=== PATIENT | male | born 1970 | race Caucasian/White ===

== ENCOUNTER → 2020-08-14 16:50 | Outpatient (CLI) | payer OTHER, SELFPAY ==
[2020-07-22 08:51] VITALS: BMI 30.3
--- NOTE | 2020-08-14 16:54 | MRI_ITS ---
STUDY: MRI LUMBAR SPINE WITHOUT CONTRAST REASON FOR EXAM: Male, 50 years old. pain, herniation of lumbar disc, lbp radiating to RLE TECHNIQUE: Standardized fat and water weighted pulse sequences were obtained in the sagittal and axial planes. COMPARISON: X-ray 07/22/2020. FINDINGS: T12-L1: Normal endplates. Normal disc height, hydration and morphology. Normal bilateral facet joints. Normal central canal and bilateral lateral recesses. Normal bilateral intervertebral neural foramina. Normal lumbar lordosis. There is no substantial scoliosis. Normal conus medullaris that terminates at the T12-L1 level. L1-2: Normal endplates. Disc dehydration. Mild, noncompressive spondylotic bar. Normal bilateral facet joints. Normal central canal and bilateral lateral recesses. Normal bilateral intervertebral neural foramina. L2-3: Normal endplates. Normal disc height and hydration. Mild, noncompressive spondylotic bar. Small right paracentral disc extrusion with 6 mm superior migration. This is best demonstrated on series 2 image 9 and series 5 image 20. Normal bilateral facet joints. Normal central canal and bilateral lateral recesses. Mild right foraminal encroachment due to spurring. L3-4: Normal endplates. Disc dehydration and mild disc space narrowing. Mild, noncompressive spondylotic bar. Normal bilateral facet joints. Normal central canal and bilateral lateral recesses. Mild foraminal encroachment due to spurring. L4-5: Normal endplates. Disc dehydration. Small, central, noncompressive disc protrusion. Normal bilateral facet joints. Normal central canal and bilateral lateral recesses. Mild right foraminal encroachment due to spurring. L5-S1: Normal endplates. Disc dehydration and mild disc space narrowing. Normal bilateral facet joints. Normal central canal and bilateral lateral recesses. Mild foraminal encroachment due to spurring. Normal visualized sacral ala. Normal visualized paraspinous soft tissue structures. MRI/Spine Lumbar (Routine) IMPRESSION: 1. Small L2-3 disc extrusion. 2. Noncompressive L4-5 disc protrusion. 3. Degenerative changes detailed above. Electronically Signed: Amirah Wade MD at 22:20 EDT Tel , Service support ,
== END ==
PROVIDERS: PCP Family Medicine; Referring Provider Orthopaedic Surgery; Visit Provider Orthopaedic Surgery
DX: M51.26 Other intervertebral disc displacement, lumbar region (principal); M54.5 Low back pain
CPT/HCPCS: 72148